=== PATIENT | male | born 1965 | race Caucasian/White ===

== ENCOUNTER 2020-12-21 09:13 | Emergency (ER) | payer OTHER ==
[~2020-12-21] VITALS: Ht 165.1 cm; Wt 46.7 kg
[2020-12-21 09:29] VITALS: BP 131/86
--- NOTE | 2020-12-21 10:05 | NUR ---
55/M presents to ED with c/o generalized body pain. Patient states he has had worsening generalized body pain for four days with no relief. States he was recently seen at [facility] for same symptoms and was told he has an "infection," patient states he was given Rx of antibiotics but has felt no relief, patient took Tylenol at home with no relief. Denies chest pain or shortness of breath, patient able to ambulate without assistance.
[2020-12-21] MEDS ORDERED: NACL 0.9% 1,000 ML IV ONE (10:25)
[2020-12-21 10:46] LABS: BASOPHILS # (AUTO) 0.1 K/uL (0.00-0.22); BASOPHILS % (AUTO) 1.1 % (0.0-2.0); EOSINOPHILS # (AUTO) 0.1 K/uL (0-0.4); EOSINOPHILS % (AUTO) 1.8 % (0.0-4.0); HEMATOCRIT 45.5 % (36-52); HEMOGLOBIN 15.9 g/dL (12.0-18.0); LYMPHOCYTES # (AUTO) 2.5 K/uL (2.0-11.5); LYMPHOCYTES % (AUTO) 32.3 % (20.5-51.1); MEAN CORPUSCULAR HEMOGLOBIN 31 pg (27-31); MEAN CORPUSCULAR HGB CONC 35 g/dL (33-37); MEAN CORPUSCULAR VOLUME 87.4 fL (80-94); MONOCYTES # (AUTO) 0.3 K/uL (0.8-1.0); MONOCYTES % (AUTO) 4.3 % (1.7-9.3); NEUTROPHILS # (AUTO) 4.7 K/uL (1.8-7.7); NEUTROPHILS % (AUTO) 60.5 % (42.2-75.2); PLATELET COUNT (AUTO) 297 K/uL (140-450); RED CELL DISTRIBUTION WIDTH 12.4 % (11.6-13.7); WHITE BLOOD COUNT (AUTO) 7.8 K/uL (4.8-10.8)
[2020-12-21 10:54] LABS: APPEARANCE,URINE CLEAR (CLEAR); BILIRUBIN,URINE NEGATIVE (NEGATIVE); BLOOD, URINE 1+ (NEGATIVE); COLOR,URINE YELLOW (YELLOW); LEUKOCYTE ESTERASE ,URINE NEGATIVE (NEGATIVE); NITRITE, URINE NEGATIVE (NEGATIVE); UGLUCOSE 3+ (NEGATIVE)
[2020-12-21] MEDS ORDERED: GABAPENTIN 300 MG CAP PO ONE (11:00)
[2020-12-21 11:13] LABS: ANION GAP 11.1 (8-16); CARBON DIOXIDE 29.9 mmol/L (21-32); CREATININE 0.7 mg/dL (0.6-1.3); MAGNESIUM 1.8 mg/dL (1.8-2.4); PHOSPHORUS 3.6 mg/dL (2.5-4.9); THYROID STIMULATING HORMONE 0.62 uIU/mL (0.34-3.74)
[2020-12-21 11:38] LABS: RBC,URINE 0-5 /HPF (0-5); WBC,URINE 0-5 /HPF (0-5)
[2020-12-21 11:39] LABS: YEAST,URINE Rare /HPF (None Seen)
[2020-12-21] MEDS ORDERED: GABA100C PO (12:51)
[2020-12-21] MEDS ORDERED: FLUC150T PO (12:51)
[2020-12-21 13:00] VITALS: BP 118/80
--- NOTE | 2020-12-21 13:00 | NUR ---
Patient discharged with v/s stable. Written and verbal after care instructions given and explained. Patient alert, oriented and verbalized understanding of instructions. Ambulatory with steady gait. All questions addressed prior to discharge. ID band removed. Patient advised to follow up with PMD. Rx of Diflucan and Gabapentin given. Patient educated on indication of medication including possible reaction and side effects. Opportunity to ask questions provided and answered.
== END 2020-12-21 13:00 | disposition home or self-care (01) ==
LOC: MED 09:13
DX: M79.10 Myalgia, unspecified site (principal); E11.40 Type 2 diabetes mellitus with diabetic neuropathy, unspecified; F17.200 Nicotine dependence, unspecified, uncomplicated; Z79.899 Other long term (current) drug therapy; Z87.442 Personal history of urinary calculi; Z88.6 Allergy status to analgesic agent
CPT/HCPCS: 36415; 80053; 81001; 82948; 83690; 83735; 84100; 84443; 85025; 96360; 99283; J7030